=== PATIENT | male | born 1995 | race Caucasian/White ===

== ENCOUNTER 2017-11-27 06:57 | Day surgery (SDC) | payer OTHER ==
[2017-11-27] MEDS ORDERED: ROCURONIUM 50 MG INJ (07:00)
[2017-11-27] MEDS ORDERED: CEFAZOLIN 1 GM INJ (07:00)
[2017-11-27] MEDS ORDERED: LIDOCAINE 2% (SDV) 5 ML INJ (07:00)
[2017-11-27] MEDS ORDERED: ROPIVACAINE 0.5 % 30 ML VIAL (08:18)
[2017-11-27] MEDS ORDERED: MIDAZOLAM 1 MG/ML 2 ML INJ (08:19)
[2017-11-27] MEDS ORDERED: PROPOFOL 20 ML (08:27)
[2017-11-27] MEDS ORDERED: THROMBIN(HUM PLAS)/FIBRINOG/CA 5 ML VIAL TOP ×2 (10:01→10:48)
[2017-11-27] MEDS ORDERED: NEOMYC/POLYMYX/BACIT 30 GM OINT (12:39)
[2017-11-27] MEDS ORDERED: KETOROLAC 30 MG INJ (13:00)
[2017-11-27] MEDS ORDERED: MIDAZOLAM 1 MG/ML 2 ML INJ IV (13:30)
[2017-11-27] MEDS ORDERED: LABETALOL HCL 20MG INJ IV (13:30)
[2017-11-27] MEDS ORDERED: OXYCODONE/ACETAMINOPHEN (5/325) TAB PO ×2 (13:30)
[2017-11-27] MEDS ORDERED: FENTAnyl 50 MCG/ML VIAL IV ×2 (13:30)
[2017-11-27] MEDS ORDERED: hydrALAzine 20 MG INJ IV (13:30)
[2017-11-27] MEDS ORDERED: EPHEDrine SULFATE 50 MG/5 ML SYG IV (13:30)
[2017-11-27] MEDS ORDERED: HYDROmorphONE (0.2 MG/ML) 10ML SYG IV ×3 (13:30)
[2017-11-27] MEDS ORDERED: METOCLOPRAMIDE 10 MG INJ IV (13:30)
[2017-11-27] MEDS ORDERED: ALBUTEROL 0.083% (NEB) 2.5 MG/3 ML AMP HHN (13:30)
[2017-11-27] MEDS ORDERED: KETOROLAC 30 MG INJ IV (13:30)
[2017-11-27] MEDS ORDERED: MEPERIDINE 25 MG INJ IV (13:30)
[2017-11-27] MEDS ORDERED: DIPHENHYDRAMINE 50 MG INJ (13:32)
[2017-11-27] MEDS ORDERED: POLYMYXIN/BACITRACIN 1L IRRIG (13:45)
[2017-11-27] MEDS: DIPHENHYDRAMINE 50 MG INJ IV (13:47)
[2017-11-27] MEDS ORDERED: morphine 2 MG INJ IV (14:00)
[2017-11-27] MEDS: ONDANSETRON 4 MG INJ IV (14:00)
[2017-11-27] MEDS: FENTAnyl 50 MCG/ML VIAL IV (14:01)
== END 2017-11-27 15:43 | disposition home or self-care (01) ==
LOC: SDS 06:57
DX: M93.272 Osteochondritis dissecans, left ankle and joints of left foot (principal); M25.872 Other specified joint disorders, left ankle and foot; Q78.8 Other specified osteochondrodysplasias
CPT/HCPCS: 27695; 73610; 82306